=== PATIENT | female | born 1970 | race Caucasian/White ===

== ENCOUNTER 2016-07-11 19:17 | Emergency (ER) | payer OTHER, MEDICARE ==
[~2016-07-11] VITALS: Ht 167.6 cm; Wt 70.0 kg
[~2016-07-11 19:17] MED LIST: CELE40TA PO; CLON0.5T PO; DYAZ37.5 PO; FLUT1SPR5 EACH NARE; SYMB160A INH; TEGR400T PO
[2016-07-11 19:30] VITALS: BP 114/75; PULSE 85; RESP 16; TEMP 98.2; O2SAT 100
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
[2016-07-11] MEDS ORDERED: ORPHENADRINE INJ 60 MG/2 ML AMP IM ONE (19:45)
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
[2016-07-11 21:14] VITALS: BP 141/63
== END 2016-07-11 21:15 | disposition home or self-care (01) ==
LOC: NEPA 19:17
DX: S16.1XXA Strain of muscle, fascia and tendon at neck level, initial encounter (principal); M54.5 Low back pain; G89.29 Other chronic pain; J45.909 Unspecified asthma, uncomplicated; E78.00 Pure hypercholesterolemia, unspecified; J44.9 Chronic obstructive pulmonary disease, unspecified; M79.7 Fibromyalgia; K21.9 Gastro-esophageal reflux disease without esophagitis; F17.210 Nicotine dependence, cigarettes, uncomplicated; V43.52XA Car driver injured in collision with other type car in traffic accident, initial encounter; Y99.8 Other external cause status
CPT/HCPCS: 72125; 96372; 99284; J2360

== ENCOUNTER 2017-04-16 18:24 | Emergency (ER) | payer OTHER, MEDICARE, MEDICAID ==
[~2017-04-16] VITALS: Ht 170.2 cm; Wt 73.0 kg
[2017-04-16 18:45] VITALS: BP 95/59; PULSE 68; RESP 17; TEMP 98.4; O2SAT 98
[2017-04-16] MEDS ORDERED: TEGR200T PO (19:06)
[2017-04-16] MEDS ORDERED: FENT25DI T-DERMAL (19:06)
[2017-04-16] MEDS ORDERED: PERC10TA27 PO (19:06)
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
[2017-04-16 19:21] VITALS: BP 102/68; PULSE 66; RESP 18; O2SAT 98
== END 2017-04-16 20:59 | disposition left against medical advice (07) ==
LOC: PHED 18:24
DX: M54.5 Low back pain (principal); M54.2 Cervicalgia; F41.9 Anxiety disorder, unspecified; F32.9 Major depressive disorder, single episode, unspecified; J44.9 Chronic obstructive pulmonary disease, unspecified; E78.5 Hyperlipidemia, unspecified; M79.7 Fibromyalgia; V49.40XA Driver injured in collision with unspecified motor vehicles in traffic accident, initial encounter; Y92.410 Unspecified street and highway as the place of occurrence of the external cause
CPT/HCPCS: 99281

== ENCOUNTER 2017-05-17 00:13 | Emergency (ER) | payer MEDICARE, MEDICAID ==
[~2017-05-17] VITALS: Ht 167.6 cm; Wt 70.0 kg
[~2017-05-17 00:13] MED LIST changes: +FENT25DI T-DERMAL; -FLUT1SPR5 EACH NARE; +PERC10TA27 PO; -SYMB160A INH; +TEGR200T PO
[2017-05-17 00:22] VITALS: BP 114/66; PULSE 67; RESP 15; TEMP 98.2; O2SAT 99
[2017-05-17 01:34] LABS: BLOOD, URINE NEG (NEG); COMMENT (UR) CULT NOT INDICATED; CULTURE IF INDICATED CULT NOT INDICATED; GLUCOSE,URINE NEG (NEG); KETONE, URINE NEG (NEG); MUCUS URINE FEW /lpf (OCC); NITRITE,URINE NEG (NEG); PH, URINE 6.5 (5.0-8.5); URINE COLOR YELLOW (YELLW/STRAW)
[2017-05-17] MEDS ORDERED: LIDOCAINE 2% JELLY 30 ML TUBE TOPICAL ONE (03:30)
[2017-05-17] MEDS ORDERED: metroNIDAZOLE 500 MG TAB PO ONE (04:00)
[2017-05-17] MEDS ORDERED: METR1TAB76 PO (04:09)
--- NOTE | 2017-05-17 04:18 | PD ---
HPI Chief Complaint: Front Office Representative Problem/Complaint Time Seen by Provider: 00:37 Travel History International Travel<30 days: No Contact w/Intl Traveler<30days: No Traveled to known affect area: No History of Present Illness HPI Patient is a 46-year-old female complaining that she is having severe itching and burning and pain in her vagina as well as bleeding when she wipes with toilet paper. It started in the last 2 days it is not getting any better she was taking Bactrim by her quality control systems manager as well as a topical steroid. It did not improve her symptoms she has seen another quality control systems manager 4 days ago who did a pelvic exam gave her Bactrim and topical steroid she also was given 1 pill of Diflucan without relieving her symptoms. She is in the ER she seems to have some of what of a personality disorder and is very difficult to get a full history out of she keeps saying part of my disabilities I can't go fast and I can't remember and she seems to be quickly agitated. After long discussion of what the emergency is and what we can do for her in the ER she agrees that a pelvic exam with the inspection of her external vagina to look for a source of bleeding would be indicated. Pelvic is done labs are sent wet prep was done and sent cultures are sent [facility] Past Medical History Asthma: Yes Blood Disorders: No Anxiety: Yes Depression: Yes Cancer: Yes Cardiovascular Problems: No High Cholesterol: Yes COPD: Yes Diabetes: No Diminished Hearing: No Endocrine: No Fibromyalgia: Yes Gastrointestinal Disorders: Yes GERD: Yes Glaucoma: No Genitourinary: No Hepatitis: No Hiatal Hernia: No Hypertension: No Immune Disorder: No Medical other: Yes (PANCREATITIS 2006) Musculoskeletal: Yes (CHRONIC BACK PAIN ) Neurologic: Yes Psychiatric: Yes Reproductive: No Respiratory: Yes (COPD) Pancreatitis: Yes (2006) Seizures: Yes Thyroid Disease: No Ulcer: No PNEUMOCCOCAL Vaccine (Year): 2 ?: Not : 0 Para: 0 Miscarriage: 0 : 0 Past Surgical History Abdominal Surgery: Yes (APPENDECTOMY) Appendectomy: Yes (CAN'T REMEMBER) Cardiac Surgery: No Cholecystectomy: Yes Ear Surgery: No Endocrine Surgery: No Eye Surgery: Yes Genitourinary Surgery: No Gynecologic Surgery: Yes (LAPROSCOPY FOR ENDOMETRIOSIS X8 ) Insulin Pump: No Neurologic Surgery: No Oral Surgery: Yes (TONSILLECTOMY) Pacemaker: No Thoracic Surgery: No Tonsillectomy: Yes Tympanostomy Tube: Yes Other Surgery: Yes Social History Alcohol Use: No Tobacco Use: Yes (1/2 PPD) Substance Use: Yes (HX POLYSUBTANCE) Allergies-Medications (Allergen,Severity, Reaction): Coded Allergies: ciprofloxacin (Verified Allergy, Severe, RASH, 05/17/17) naproxen (Verified Allergy, Severe, DIARRHEA, 05/17/17) cephalexin (Verified Adverse Reaction, Intermediate, DIARRHEA, 05/17/17) Reported Meds & Prescriptions Reported Meds & Active Scripts Active Metronidazole 500 Mg Tab 500 Mg PO TID Reported Fentanyl Patch 72 HR (Fentanyl) 25 Mcg/Hr Patch Unknown Dose T-DERMAL Q72H Tegretol (Carbamazepine) 200 Mg Tab 200 Mg PO HS Percocet (Oxycodone-Acetaminophen) 10-325 mg Tab 1 Tab PO Q6H PRN Dyazide (Triamterene-Hydrochlorothiazide) 37.5-25 Mg Cap 1 Cap PO BID Clonazepam 0.5 Mg Tab 0.5 Mg PO BID Celexa (Citalopram Hydrobromide) 40 Mg Tab 40 Mg PO DAILY Tegretol-Xr 12 HR (Carbamazepine) 400 Mg Tab 400 Mg PO DAILY Review of Systems Except as stated in HPI: all other systems reviewed are Neg Genitourinary: Positive: Discharge, Vaginal Bleeding Physical Exam Narrative GENERAL: affect is slight inappropraite and she is irritable when questioned or interrupted SKIN: Warm and dry. HEAD: Atraumatic. Normocephalic. EYES: Pupils equal and round. No scleral icterus. No injection or drainage. ENT: No nasal bleeding or discharge. Mucous membranes pink and moist. NECK: Trachea midline. No JVD. CARDIOVASCULAR: Regular rate and rhythm. pelvic exam external vagina appears normal no source of bleeding internal vagina toro no source of bleeding cervix has a slight discharge possibly physiological no source of bleeding from the cervix cultures are sent and wet prep are sent RESPIRATORY: No accessory muscle use. Clear to auscultation. Breath sounds equal bilaterally. GASTROINTESTINAL: Abdomen soft, non-tender, nondistended. Hepatic and splenic margins not palpable. MUSCULOSKELETAL: Extremities without clubbing, cyanosis, or edema. No obvious deformities. NEUROLOGICAL: Awake and alert. No obvious cranial nerve deficits. Motor grossly within normal limits. Five out of 5 muscle strength in the arms and legs. Normal speech. PSYCHIATRIC: Appropriate mood and affect; insight and judgment normal. Data Data Last Documented VS Vital Signs Date Time Temp Pulse Resp B/P (MAP) Pulse Ox O2 Delivery O2 Flow Rate FiO2 05/17/17 04:24 05/17/17 00:22 98.2 67 15 99 Room Air Orders Orders Urinalysis - C+S If Indicated (05/17/17 01:08) Ed Urine Pregnancytest Poc (05/17/17 01:08) Lidocaine 2% Jelly (Xylocaine 2% Jelly) (05/17/17 03:30) Gc And Chlamydia Pcr (05/17/17 03:20) Wet Prep Profile (05/17/17 03:20) Metronidazole (Flagyl) (05/17/17 04:00) Ed Discharge Order (05/17/17 04:19) Labs Laboratory Tests Test 05/17/17 01:10 05/17/17 02:56 Urine Color YELLOW Urine Turbidity CLEAR Urine pH 6.5 Urine Specific [place] 1.016 Urine Protein NEG mg/dL Urine Glucose (UA) NEG mg/dL Urine Ketones NEG mg/dL Urine Occult Blood NEG Urine Nitrite NEG Urine Bilirubin NEG Urine Urobilinogen LESS THAN 2.0 MG/DL Urine Leukocyte Esterase NEG Urine RBC 7 /hpf Urine WBC LESS THAN 1 /hpf Urine Mucus FEW /lpf Microscopic Urinalysis Comment CULT NOT INDICATED Clue Cells (Wet Prep) PRESENT Vaginal Trichomonas (Wet Prep) NONE SEEN Vaginal Yeast (Wet Prep) NONE SEEN MDM Medical Decision Making Medical Screen Exam Complete: Yes Emergency Medical Condition: Yes Differential Diagnosis Dysuria versus UTI versus hematuria versus vaginal wall bleeding versus cervical vaginal bleeding Narrative Course Pelvic exam is done and there is no bleeding externally internally or from the cervix cultures are sent and wet prep shows rare clue cells I treat her with metronidazole for BV and discharged with a 7 day prescription for 3 times a day metronidazole follow-up with the quality control systems manager Diagnosis Primary Impression: Bacterial vaginosis Patient Instructions: Bacterial Vaginosis (ED), General Instructions Additional Instructions: follow up with you vocational placement specialist in 2 days take all meds as prescribed Scripts Metronidazole (Metronidazole) 500 Mg Tab 500 MG PO TID for Infection, #21 TAB 0 Refills Prov: Zack Carvalho MD 05/17/17 Disposition: 01 DISCHARGE HOME Condition: Good Zack Carvalho MD May 17, 2017 04:18
[2017-05-17 06:16] LABS: CHLAMYDIA PCR NOT DETECTED (NOT DETECT); NEISSERIA PCR NOT DETECTED (NOT DETECT)
== END 2017-05-17 04:30 | disposition home or self-care (01) ==
LOC: NEPC 00:13
DX: N76.0 Acute vaginitis (principal); B96.89 Other specified bacterial agents as the cause of diseases classified elsewhere; F17.200 Nicotine dependence, unspecified, uncomplicated
CPT/HCPCS: 81001; 84703; 87210; 87491; 87591; 99284

== ENCOUNTER 2017-06-08 13:03 | Emergency (ER) | payer MEDICARE, OTHER ==
[~2017-06-08] VITALS: Ht 167.6 cm; Wt 65.0 kg
[~2017-06-08 13:03] MED LIST changes: +METR1TAB76 PO
[2017-06-08 13:05] VITALS: BP 122/69; PULSE 65; RESP 14; TEMP 97.8; O2SAT 97
[2017-06-08] MEDS ORDERED: DIFL150T PO (14:11)
[2017-06-08] MEDS ORDERED: AUGM875T3 PO (14:11)
--- NOTE | 2017-06-08 14:12 | PD ---
HPI Chief Complaint: ENT Complaint Time Seen by Provider: 13:56 Travel History International Travel<30 days: No Contact w/Intl Traveler<30days: No Traveled to known affect area: No History of Present Illness HPI Patient is a 46-year-old female presents to emergency room with multiple complaints. 1) Patient reports that for the past few days, she has been having tooth pain. Patient reports that she has been unable to go to her dentist, request pain medications for dental pain. 2) patient reports that for the past 2 days, she has had a sore throat, reports that she has laryngitis, reports concerns for strep pharyngitis. Patient with no fever or chills, no cough or congestion. 3) patient also reports that she had sex with her ex- a few days ago, reports that the condom broke, patient reports that she is concern for possible STD as she has noticed thick vaginal discharge. Patient reports that she called her postpartum rn but was not able to be seen. Patient with no abdominal pain at this time. Denies n/v/d. Request STD check. PFSH Past Medical History Asthma: Yes Blood Disorders: No Anxiety: Yes Depression: Yes Cancer: Yes Cardiovascular Problems: No High Cholesterol: Yes COPD: Yes Diabetes: No Diminished Hearing: No Endocrine: No Fibromyalgia: Yes Gastrointestinal Disorders: Yes GERD: Yes Glaucoma: No Genitourinary: No Hepatitis: No Hiatal Hernia: No Hypertension: No Immune Disorder: No Musculoskeletal: Yes (CHRONIC BACK PAIN ) Neurologic: Yes Psychiatric: Yes Reproductive: No Respiratory: Yes (COPD) Pancreatitis: Yes (2006) Seizures: Yes Thyroid Disease: No Ulcer: No PNEUMOCCOCAL Vaccine (Year): 2 ?: Not : 0 Para: 0 Miscarriage: 0 : 0 Past Surgical History Abdominal Surgery: Yes (APPENDECTOMY) Appendectomy: Yes (CAN'T REMEMBER) Cardiac Surgery: No Cholecystectomy: Yes Ear Surgery: No Endocrine Surgery: No Eye Surgery: Yes Genitourinary Surgery: No Gynecologic Surgery: Yes (LAPROSCOPY FOR ENDOMETRIOSIS X8 ) Insulin Pump: No Neurologic Surgery: No Oral Surgery: Yes (TONSILLECTOMY) Pacemaker: No Thoracic Surgery: No Tonsillectomy: Yes Tympanostomy Tube: Yes Other Surgery: Yes Social History Alcohol Use: No Tobacco Use: Yes (1/2 PPD) Substance Use: Yes (HX POLYSUBTANCE) Allergies-Medications (Allergen,Severity, Reaction): Coded Allergies: ciprofloxacin (Verified Allergy, Severe, RASH, 05/17/17) naproxen (Verified Allergy, Severe, DIARRHEA, 05/17/17) cephalexin (Verified Adverse Reaction, Intermediate, DIARRHEA, 05/17/17) Reported Meds & Prescriptions Reported Meds & Active Scripts Active Diflucan (Fluconazole) 150 Mg Tab 150 Mg PO ONCE Augmentin (Amoxicillin-Clavulanate) 875-125 Mg Tab 1 Tab PO BID 10 Days Metronidazole 500 Mg Tab 500 Mg PO TID Reported Fentanyl Patch 72 HR (Fentanyl) 25 Mcg/Hr Patch Unknown Dose T-DERMAL Q72H Tegretol (Carbamazepine) 200 Mg Tab 200 Mg PO HS Percocet (Oxycodone-Acetaminophen) 10-325 mg Tab 1 Tab PO Q6H PRN Dyazide (Triamterene-Hydrochlorothiazide) 37.5-25 Mg Cap 1 Cap PO BID Clonazepam 0.5 Mg Tab 0.5 Mg PO BID Celexa (Citalopram Hydrobromide) 40 Mg Tab 40 Mg PO DAILY Tegretol-Xr 12 HR (Carbamazepine) 400 Mg Tab 400 Mg PO DAILY Review of Systems General / Constitutional: No: Fever Eyes: No: Visual changes HENT: Positive: Sore Throat, Dental Difficulties, No: Headaches, Neck Pain Cardiovascular: No: Chest Pain or Discomfort Respiratory: No: Cough, Shortness of Breath Gastrointestinal: No: Abdominal Pain Genitourinary: Positive: Discharge, No: Dysuria, Vaginal Bleeding Musculoskeletal: No: Pain Skin: No Rash Neurologic: No: Weakness Psychiatric: No: Depression Endocrine: No: Polydipsia Hematologic/Lymphatic: No: Easy Bruising Physical Exam Narrative GENERAL: mild distress SKIN: Focused skin assessment warm/dry. HEAD: Atraumatic. Normocephalic. EYES: Pupils equal and round. No scleral icterus. No injection or drainage. ENT: No nasal bleeding or discharge. Mucous membranes pink and moist. Patient with pain to right upper molar, patient with increased redness and erythema to posterior pharynx, there is no swelling to posterior pharynx. Uvula is midline with no swelling. NECK: Trachea midline. No JVD. CARDIOVASCULAR: Regular rate and rhythm. No murmur appreciated. RESPIRATORY: No accessory muscle use. Clear to auscultation. Breath sounds equal bilaterally. GASTROINTESTINAL: Abdomen soft, non-tender, nondistended. Hepatic and splenic margins not palpable. : pelvic exam performed with RN at bedside, no cmt or adnexal tenderness, patient with thick white discharge from vagina MUSCULOSKELETAL: No obvious deformities. No clubbing. No cyanosis. No edema. NEUROLOGICAL: Awake and alert. No obvious cranial nerve deficits. Motor grossly within normal limits. Normal speech. PSYCHIATRIC: Appropriate mood and affect; insight and judgment normal. Data Data Last Documented VS Vital Signs Date Time Temp Pulse Resp B/P (MAP) Pulse Ox O2 Delivery O2 Flow Rate FiO2 06/08/17 13:05 97.8 65 14 122/69 (86) 97 Orders Orders Gc And Chlamydia Pcr (06/08/17 14:00) Wet Prep Profile (06/08/17 14:00) Urinalysis - C+S If Indicated (06/08/17 14:00) Ed Urine Pregnancytest Poc (06/08/17 14:00) Dexamethasone Inj (Decadron Inj) (06/08/17 14:15) Amoxicil-Clavulanate (Augmentin) (06/08/17 14:15) Labs Laboratory Tests Test 06/08/17 15:15 06/08/17 15:18 Urine Color YELLOW Urine Turbidity CLEAR Urine pH 6.5 Urine Specific [place] 1.014 Urine Protein NEG mg/dL Urine Glucose (UA) NEG mg/dL Urine Ketones NEG mg/dL Urine Occult Blood NEG Urine Nitrite NEG Urine Bilirubin NEG Urine Urobilinogen LESS THAN 2.0 MG/DL Urine Leukocyte Esterase LARGE Urine WBC LESS THAN 1 /hpf Urine Squamous Epithelial Cells 1 /hpf Urine Mucus FEW /lpf Microscopic Urinalysis Comment CULT NOT INDICATED Clue Cells (Wet Prep) NONE SEEN Vaginal Trichomonas (Wet Prep) NONE SEEN Vaginal Yeast (Wet Prep) NONE SEEN MDM Medical Decision Making Medical Screen Exam Complete: Yes Emergency Medical Condition: Yes Medical Record Reviewed: Yes Interpretation(s) Vital Signs Date Time Temp Pulse Resp B/P (MAP) Pulse Ox O2 Delivery O2 Flow Rate FiO2 06/08/17 13:05 97.8 65 14 122/69 (86) 97 Differential Diagnosis Dental caries, pharyngitis, viral syndrome, cervicitis, UTI Narrative Course 46-year-old female who presents to emergency room with multiple complaints. Patient understands that she must follow-up with her primary care doctor, her dentist as well as her postpartum rn for all her nonemergent complaints. Plan to treat for possible strep pharyngitis with Augmentin as this will cover possible dental infection. Patient understands that she must follow-up with a dentist for dental pain as there are no dental services that I can offer her in the ER. Was called back into room as patient reports pain with swallowing - airway is open and patent, patient with no signs of airway compromise or edema. Discussed with patient that she most likely has strep pharyngitis, she'll be treated for pharyngitis. As per her vaginal discharge, patient denies any pelvic pain. Discussed with her that I will perform a pelvic exam, I will test for gonorrhea/chlamydia, she will need to follow-up with her postpartum rn for further STD testing. She will also need to follow up with all cultures from today. A pelvic exam was performed, she with thick white discharge, most likely Isabel in nature. Plan to start patient on Diflucan. Patient will follow-up with her GC results, she does not want to be treated at this time. She understands that if cultures are positive, all sexual partners will need to be treated. Patient will follow up with her primary care doctor and will return to emergency room as needed. She also understands need to follow-up with her postpartum rn for full STD panel I was called back into the room multiple times as patient is concerned about treatment for yeast infection. Discussed with patient that she will be discharged with Diflucan prescription at discharge I reviewed all studies with patient in detail, greater than 20 minutes was used to review all discharge instructions and need to follow-up with her primary care doctor, her dentist as well as her postpartum rn. Patient was anxious on discharge, requesting to speak to me again. I reviewed all studies from today as well as plan of care. Understands need for follow up. Signs and symptoms of when to return to the ER was reviewed with patient in detail. Critical Care Narrative Aggregate critical care time was 30 minutes. Time to perform other separately billable procedures was not included in the critical care time. My time did not include minutes spent treating any other patients simultaneously or on activities that did not directly contribute to the patient's treatment. I was called into patient's room multiple times to answer questions and address all her concerns The services I provided to this patient were to treat and/or prevent clinically significant deterioration that could result in decompensation, deterioration. I provided critical care services requiring my management, as noted below: Chart data review, documentation time, medication orders and management, vital sign assessments/reviewing monitor data, ordering and reviewing lab tests, ordering and interpreting/reviewing x-rays and diagnostic studies, care of the patient and discussion of the patient with the admitting physicians. Diagnosis Primary Impression: Strep pharyngitis Additional Impressions: Pain, dental Vaginitis Patient Instructions: General Instructions Additional Instructions: Please take all medications as prescribed Please follow-up with all cultures from today Please follow-up with your dentist Please follow-up with postpartum rn for further STD testing, only gonorrhea and chlamydia tests today, if cultures are positive, all sexual partners will need to be treated Please follow up with your primary care doctor in 2-3 days Return to the ER if symptoms worsen or progress Return to the ER as needed Med/Other Pt SpecificInfo: Prescription(s) given Scripts Fluconazole (Diflucan) 150 Mg Tab 150 MG PO ONCE for Infection, #2 TAB 0 Refills Prov: Lucille Gerard DO 06/08/17 Amoxicillin-Clavulanate (Augmentin) 875-125 Mg Tab 1 TAB PO BID for Infection for 10 Days, #20 TAB 0 Refills Prov: Lucille Gerard DO 06/08/17 Disposition: 01 DISCHARGE HOME Condition: Stable Lucille Gerard DO Jun 08, 2017 14:12
[2017-06-08] MEDS ORDERED: AMOXICILLIN/CLAVULANATE K 875 MG TAB PO ONE (14:15)
[2017-06-08] MEDS ORDERED: DEXAMETHASONE SOD PHOS 20 MG/5 ML VIAL IM ONE (14:15)
[2017-06-08 15:35] LABS: BLOOD, URINE NEG (NEG); COMMENT (UR) CULT NOT INDICATED; CULTURE IF INDICATED CULT NOT INDICATED; GLUCOSE,URINE NEG (NEG); KETONE, URINE NEG (NEG); MUCUS URINE FEW /lpf (OCC); NITRITE,URINE NEG (NEG); PH, URINE 6.5 (5.0-8.5); SQUAMOUS EPITHELIAL CELL URINE 1 /hpf (0-5); URINE COLOR YELLOW (YELLW/STRAW)
[2017-06-08 18:19] LABS: CHLAMYDIA PCR NOT DETECTED (NOT DETECT); NEISSERIA PCR NOT DETECTED (NOT DETECT)
== END 2017-06-08 17:03 | disposition home or self-care (01) ==
LOC: NEPD 13:03
DX: J02.0 Streptococcal pharyngitis (principal); K08.89 Other specified disorders of teeth and supporting structures; N76.0 Acute vaginitis; F17.200 Nicotine dependence, unspecified, uncomplicated
CPT/HCPCS: 81001; 84703; 87210; 87491; 87591; 96372; 99285; J1100

== ENCOUNTER 2017-10-19 14:33 | Emergency (ER) | payer MEDICARE, OTHER ==
[~2017-10-19] VITALS: Ht 167.6 cm; Wt 73.0 kg
[~2017-10-19 14:33] MED LIST changes: +AUGM875T3 PO; +DIFL150T PO
[2017-10-19 14:38] VITALS: PULSE 68; RESP 16; TEMP 98; O2SAT 99
[2017-10-19] MEDS ORDERED: HYDR-3583 PO (14:51)
[2017-10-19] MEDS ORDERED: PENI500T PO (14:56)
[2017-10-19] MEDS ORDERED: DIFL150T PO (14:56)
--- NOTE | 2017-10-19 14:56 | PD ---
HPI Chief Complaint: Oral / Dental Pain or Problem Time Seen by Provider: 14:48 Travel History International Travel<30 days: No Contact w/Intl Traveler<30days: No Traveled to known affect area: No History of Present Illness HPI 47-year-old female with left upper dental pain 1 day. Denies fever chills. No difficulty swallowing. Has not attempted any [id number] medications for symptom relief. Pain is constant, throbbing, nonradiating localized to the left upper mouth. Symptom severity is mild to moderate. PFSH Past Medical History Arthritis: Yes Asthma: Yes Blood Disorders: No Anxiety: Yes Depression: Yes Cancer: Yes Cardiovascular Problems: No High Cholesterol: Yes COPD: Yes Diabetes: No Diminished Hearing: No Endocrine: No Fibromyalgia: Yes Gastrointestinal Disorders: Yes GERD: Yes Glaucoma: No Genitourinary: No Hepatitis: No Hiatal Hernia: No Hypertension: No Immune Disorder: No Implanted Vascular Access Dvce: No Musculoskeletal: Yes (CHRONIC BACK PAIN ,BURSITIS BOTH HIPS) Neurologic: Yes Psychiatric: Yes Reproductive: No Respiratory: Yes Immunizations Current: Yes Pancreatitis: Yes (2006) Seizures: Yes Thyroid Disease: No Ulcer: No PNEUMOCCOCAL Vaccine (Year): 2 : 0 Para: 0 Miscarriage: 0 : 0 Past Surgical History Abdominal Surgery: Yes (APPENDECTOMY) Appendectomy: Yes (CAN'T REMEMBER) Cardiac Surgery: No Cholecystectomy: Yes Ear Surgery: No Endocrine Surgery: No Eye Surgery: Yes Genitourinary Surgery: No Gynecologic Surgery: Yes (LAPROSCOPY FOR ENDOMETRIOSIS X8 ) Insulin Pump: No Neurologic Surgery: No Oral Surgery: Yes Pacemaker: No Thoracic Surgery: No Tonsillectomy: Yes Tympanostomy Tube: Yes Other Surgery: Yes Social History Alcohol Use: No Tobacco Use: Yes (1/2 PPD) Substance Use: Yes (HX POLYSUBTANCE) Allergies-Medications (Allergen,Severity, Reaction): Coded Allergies: ciprofloxacin (Verified Allergy, Severe, RASH, 10/19/17) naproxen (Verified Allergy, Severe, DIARRHEA, 10/19/17) cephalexin (Verified Adverse Reaction, Intermediate, DIARRHEA, 10/19/17) Reported Meds & Prescriptions Reported Meds & Active Scripts Active Diflucan (Fluconazole) 150 Mg Tab 150 Mg PO ONCE Penicillin V Potassium 500 Mg Tab 500 Mg PO Q8H 7 Days Reported Hydrocodone-Acetaminophen 10-325 mg Tab 1 Tab PO Q6H PRN Tegretol (Carbamazepine) 200 Mg Tab 200 Mg PO HS Clonazepam 0.5 Mg Tab 0.5 Mg PO BID Celexa (Citalopram Hydrobromide) 40 Mg Tab 40 Mg PO DAILY Tegretol-Xr 12 HR (Carbamazepine) 400 Mg Tab 400 Mg PO DAILY Review of Systems Except as stated in HPI: all other systems reviewed are Neg General / Constitutional: No: Fever Eyes: No: Visual changes HENT: No: Headaches Cardiovascular: No: Chest Pain or Discomfort Respiratory: No: Shortness of Breath Gastrointestinal: No: Abdominal Pain Genitourinary: No: Dysuria Physical Exam Narrative GENERAL: Alert and well-appearing 47-year-old female SKIN: Warm and dry. HEAD: Normocephalic. EYES: No scleral icterus. No injection or drainage. MOUTH: Widespread dental decay. Mild gum erythema around the left upper first bicuspid. No swelling to the floor the mouth. Uvula is midline. Airways patent. NECK: Supple, trachea midline. No lymphadenopathy. CARDIOVASCULAR: Regular rate and rhythm RESPIRATORY: Breath sounds equal bilaterally. No accessory muscle use. GASTROINTESTINAL: Abdomen soft, non-tender, nondistended. MUSCULOSKELETAL: No cyanosis, or edema. Data Data Last Documented VS Vital Signs Date Time Temp Pulse Resp B/P (MAP) Pulse Ox O2 Delivery O2 Flow Rate FiO2 10/19/17 15:41 10/19/17 14:38 98.0 68 16 99 MDM Medical Decision Making Medical Screen Exam Complete: Yes Emergency Medical Condition: Yes Differential Diagnosis Dental infection, periodontal disease, dental abscess Narrative Course 47-year-old female here with mild dental infection. She reports allergies cephalexin but is able to take penicillin. Diagnosis Primary Impression: Dental infection Referrals: Dentist Scripts Fluconazole (Diflucan) 150 Mg Tab 150 MG PO ONCE for Infection, #1 TAB 0 Refills Prov: Laisha Haley 10/19/17 Penicillin V Potassium (Penicillin V Potassium) 500 Mg Tab 500 MG PO Q8H for Infection for 7 Days, #21 TAB 0 Refills Prov: Laisha Haley 10/19/17 Disposition: 01 DISCHARGE HOME Condition: Stable Laisha Haley Oct 19, 2017 14:56
[2017-10-19 14:57] VITALS: BP 131/70
== END 2017-10-19 15:41 | disposition home or self-care (01) ==
LOC: PHEFT 14:33
DX: K04.7 Periapical abscess without sinus (principal); E78.00 Pure hypercholesterolemia, unspecified; F32.9 Major depressive disorder, single episode, unspecified; F41.9 Anxiety disorder, unspecified; J44.9 Chronic obstructive pulmonary disease, unspecified; K21.9 Gastro-esophageal reflux disease without esophagitis; G89.29 Other chronic pain; M54.9 Dorsalgia, unspecified; F17.200 Nicotine dependence, unspecified, uncomplicated
CPT/HCPCS: 99283

== ENCOUNTER 2017-11-15 12:05 | Emergency (ER) | END 2017-11-15 15:43 | disposition home or self-care (01) | DX: K04.7 Periapical abscess without sinus (principal); E78.00 Pure hypercholesterolemia, unspecified; K21.9 Gastro-esophageal reflux disease without esophagitis; G40.909 Epilepsy, unspecified, not intractable, without status epilepticus; F41.8 Other specified anxiety disorders; F17.200 Nicotine dependence, unspecified, uncomplicated; Z87.39 Personal history of other diseases of the musculoskeletal system and connective tissue; Z87.09 Personal history of other diseases of the respiratory system; Z87.19 Personal history of other diseases of the digestive system | CPT/HCPCS: 70491; 80053; 85025; 96361; 96374; 96375; 99284; J1100; J1885; J7030; Q9967 ==

== ENCOUNTER 2017-11-16 12:52 | Emergency (ER) | payer MEDICARE, OTHER ==
[~2017-11-16] VITALS: Ht 167.6 cm; Wt 74.0 kg
[~2017-11-16 12:52] MED LIST changes: +AMOX500C PO; -DYAZ37.5 PO; -FENT25DI T-DERMAL; +HYDR-3583 PO; +MEDR4PAK PO; -METR1TAB76 PO; -PERC10TA27 PO
[2017-11-16 12:56] VITALS: BP 115/59; PULSE 64; RESP 16; TEMP 98.6; O2SAT 99
[2017-11-16] MEDS ORDERED: CLINDAMYCIN PHOS 600 MG/4 ML VIAL IM ONE (13:30)
[2017-11-16] MEDS ORDERED: DIFL150T PO (13:35)
[2017-11-16] MEDS ORDERED: CLIN300C5 PO (13:35)
--- NOTE | 2017-11-16 13:35 | PD ---
HPI Chief Complaint: Oral / Dental Pain or Problem Time Seen by Provider: 13:16 Travel History International Travel<30 days: No Contact w/Intl Traveler<30days: No Traveled to known affect area: No History of Present Illness HPI 47-year-old female here with left lower dental abscess reporting nausea after taking Augmentin. She is requesting antibiotic change. No difficulty swallowing. No vomiting or abdominal pain. No fever chills. She had an extensive workup yesterday. She reports the nausea started after each dose of Augmentin last night and this morning. Symptom severity is mild to moderate. PFSH Past Medical History Arthritis: Yes Asthma: Yes Blood Disorders: No Anxiety: Yes Depression: Yes Cancer: Yes Cardiovascular Problems: No High Cholesterol: Yes COPD: Yes Diabetes: No Diminished Hearing: No Endocrine: No Fibromyalgia: Yes Gastrointestinal Disorders: Yes GERD: Yes Glaucoma: No Genitourinary: No Hepatitis: No Hiatal Hernia: No Hypertension: No Immune Disorder: No Implanted Vascular Access Dvce: No Musculoskeletal: Yes (CHRONIC BACK PAIN ,BURSITIS BOTH HIPS) Neurologic: Yes Psychiatric: Yes Reproductive: No Respiratory: Yes (asthma, COPD) Immunizations Current: Yes Pancreatitis: Yes (2006) Seizures: Yes Thyroid Disease: No Ulcer: No Influenza Vaccination: No PNEUMOCCOCAL Vaccine (Year): 2 ?: Not : 0 Para: 0 Miscarriage: 0 : 0 Past Surgical History Abdominal Surgery: Yes Appendectomy: Yes Cardiac Surgery: No Cholecystectomy: Yes Ear Surgery: No Endocrine Surgery: No Eye Surgery: Yes Genitourinary Surgery: No Gynecologic Surgery: Yes (LAPROSCOPY FOR ENDOMETRIOSIS X8 ) Insulin Pump: No Neurologic Surgery: No Oral Surgery: Yes Pacemaker: No Thoracic Surgery: No Tonsillectomy: Yes Tympanostomy Tube: Yes Other Surgery: Yes Social History Alcohol Use: No Tobacco Use: Yes (1/2 PPD) Substance Use: Yes (HX POLYSUBTANCE ) Allergies-Medications (Allergen,Severity, Reaction): Coded Allergies: ciprofloxacin (Verified Allergy, Severe, RASH, 11/16/17) naproxen (Verified Allergy, Severe, DIARRHEA, 11/16/17) cephalexin (Verified Adverse Reaction, Intermediate, DIARRHEA, 11/16/17) Reported Meds & Prescriptions Reported Meds & Active Scripts Active Zofran (Ondansetron HCl) 4 Mg Tab 4 Mg PO Q8HR PRN Diflucan (Fluconazole) 150 Mg Tab 150 Mg PO ONCE Clindamycin (Clindamycin HCl) 300 Mg Cap 300 Mg PO Q6H 10 Days Medrol Dosepak (Methylprednisolone) 4 Mg Dspk 4 Mg PO DIRECTED Per Pharmacist direction Augmentin (Amoxicillin-Clavulanate) 875-125 Mg Tab 1 Tab PO BID 7 Days Reported Hydrocodone-Acetaminophen 10-325 mg Tab 1 Tab PO Q6H PRN Tegretol (Carbamazepine) 200 Mg Tab 800 Mg PO HS Clonazepam 0.5 Mg Tab 0.5 Mg PO BID Celexa (Citalopram Hydrobromide) 40 Mg Tab 40 Mg PO DAILY Tegretol-Xr 12 HR (Carbamazepine) 400 Mg Tab 400 Mg PO DAILY Review of Systems Except as stated in HPI: all other systems reviewed are Neg General / Constitutional: No: Fever Eyes: No: Visual changes HENT: No: Headaches Cardiovascular: No: Chest Pain or Discomfort Respiratory: No: Shortness of Breath Gastrointestinal: Positive: Nausea Genitourinary: No: Dysuria Physical Exam Narrative GENERAL: Alert and well-appearing 47-year-old female SKIN: Warm and dry. HEAD: Normocephalic. EYES: No injection or drainage. ENT: Widespread dental decay. There is gum swelling in the location to 20 through 18. No swelling to the floor the mouth. No oropharyngeal swelling. Uvula is midline. Airways patent. Normal phonation. NECK: Supple, trachea midline. Mild tenderness and swelling to the submandibular region she reports this area is actually decreased since yesterday 's visit. CARDIOVASCULAR: Regular rate and rhythm without murmurs, gallops, or rubs. RESPIRATORY: Breath sounds equal bilaterally. No accessory muscle use. GASTROINTESTINAL: Abdomen soft, non-tender, nondistended. MUSCULOSKELETAL: No cyanosis, or edema. Data Data Last Documented VS Vital Signs Date Time Temp Pulse Resp B/P (MAP) Pulse Ox O2 Delivery O2 Flow Rate FiO2 11/16/17 12:56 98.6 64 16 115/59 (77) 99 Orders Orders Clindamycin Inj (Cleocin Inj) (11/16/17 13:30) MDM Medical Decision Making Medical Screen Exam Complete: Yes Emergency Medical Condition: Yes Differential Diagnosis Dental abscess, Khurram's angina, adverse effect of medication causing nausea Narrative Course 47-year-old female here with left lower dental abscess reporting nausea after taking Augmentin. She is requesting antibiotic change. She is nontoxic appearing. No difficulty swallowing. She had an extensive workup yesterday. She has follow-up with her dentist. Her antibiotic was changed to clindamycin. She is requesting Diflucan prescription for possible yeast infection after antibiotics. Diagnosis Primary Impression: Dental abscess Additional Impression: Nausea Referrals: Dentist Additional Instructions: Antibiotics as directed. Stay well hydrated. Follow-up with her dentist. Scripts Ondansetron (Zofran) 4 Mg Tab 4 MG PO Q8HR Y for NAUSEA OR VOMITING, #6 TAB 0 Refills Prov: Laisha Haley 11/16/17 Fluconazole (Diflucan) 150 Mg Tab 150 MG PO ONCE for Infection, #1 TAB 0 Refills Prov: Laisha Haley 11/16/17 Clindamycin (Clindamycin) 300 Mg Cap 300 MG PO Q6H for Infection for 10 Days, #40 CAP 0 Refills Prov: Laisha Haley 11/16/17 Laisha Haley November 16, 2017 13:35
[2017-11-16] MEDS ORDERED: ZOFR4TAB PO (13:44)
== END 2017-11-16 14:09 | disposition home or self-care (01) ==
LOC: PHEFT 12:52
DX: K04.7 Periapical abscess without sinus (principal); K85.90 Acute pancreatitis without necrosis or infection, unspecified; J44.9 Chronic obstructive pulmonary disease, unspecified; E78.00 Pure hypercholesterolemia, unspecified; M79.7 Fibromyalgia; K21.9 Gastro-esophageal reflux disease without esophagitis; F17.200 Nicotine dependence, unspecified, uncomplicated
CPT/HCPCS: 96372

== ENCOUNTER 2017-12-19 15:29 | Emergency (ER) | payer MEDICARE, OTHER ==
[~2017-12-19 15:29] MED LIST changes: -AMOX500C PO; +CLIN300C5 PO; +ZOFR4TAB PO
[2017-12-19 15:45] VITALS: BP 111/67; PULSE 63; RESP 18; TEMP 98.5; O2SAT 95
--- NOTE | 2017-12-19 18:34 | PD ---
HPI Chief Complaint: Data Architect Manager Problem/Complaint Time Seen by Provider: 17:33 Travel History International Travel<30 days: No Contact w/Intl Traveler<30days: No Traveled to known affect area: No History of Present Illness HPI 47-year-old female which is the ED for evaluation of approximate 36 hour history of vaginal irritation. Onset after unprotected sex with a single male partner. Patient endorses light colored vaginal discharge. She denies foul odor, abdominal pain, nausea, vomiting, dysuria, vaginal bleeding. She states that as she is sitting here she feels as if she is getting more irritated in the pelvic region. She denies risk of , states this is her first sexual encounter in many years. She is unsure if her partner is experiencing more symptoms. PFSH Past Medical History Arthritis: Yes Asthma: Yes Blood Disorders: No Anxiety: Yes Depression: Yes Cancer: Yes Cardiovascular Problems: No High Cholesterol: Yes COPD: Yes Diabetes: No Diminished Hearing: No Endocrine: No Fibromyalgia: Yes Gastrointestinal Disorders: Yes GERD: Yes Glaucoma: No Genitourinary: No Hepatitis: No Hiatal Hernia: No Hypertension: No Immune Disorder: No Implanted Vascular Access Dvce: No Medical other: Yes (PANCREATITIS 2006) Musculoskeletal: Yes (CHRONIC BACK PAIN ,BURSITIS BOTH HIPS) Neurologic: Yes Psychiatric: Yes Reproductive: No Respiratory: Yes (asthma, COPD) Immunizations Current: Yes Pancreatitis: Yes (2006) Seizures: Yes Thyroid Disease: No Ulcer: No PNEUMOCCOCAL Vaccine (Year): 2 ?: Not LMP: 2013 Menopausal: Yes : 0 Para: 0 Miscarriage: 0 : 0 Past Surgical History Abdominal Surgery: Yes Appendectomy: Yes Cardiac Surgery: No Cholecystectomy: Yes Ear Surgery: No Endocrine Surgery: No Eye Surgery: Yes Genitourinary Surgery: No Gynecologic Surgery: Yes (LAPROSCOPY FOR ENDOMETRIOSIS X8 ) Insulin Pump: No Neurologic Surgery: No Oral Surgery: Yes Pacemaker: No Thoracic Surgery: No Tonsillectomy: Yes Tympanostomy Tube: Yes Other Surgery: Yes Social History Alcohol Use: No Tobacco Use: Yes (1/2 PPD) Substance Use: Yes (HX POLYSUBTANCE ) Allergies-Medications (Allergen,Severity, Reaction): Coded Allergies: ciprofloxacin (Verified Allergy, Severe, RASH, 11/16/17) naproxen (Verified Allergy, Severe, DIARRHEA, 11/16/17) cephalexin (Verified Adverse Reaction, Intermediate, DIARRHEA, 11/16/17) Reported Meds & Prescriptions Reported Meds & Active Scripts Active Bactrim DS (Sulfamethoxazole-Trimethoprim) 800-160 Mg Tab 1 Tab PO BID Metrogel Vaginal Gel (Metronidazole Vaginal Gel) 0.75 % Gel 1 Appl VAGINAL HS 5 Days Diflucan (Fluconazole) 150 Mg Tab 150 Mg PO ONCE Reported Hydrocodone-Acetaminophen 10-325 mg Tab 1 Tab PO Q6H PRN Tegretol (Carbamazepine) 200 Mg Tab 800 Mg PO HS Clonazepam 0.5 Mg Tab 0.5 Mg PO BID Celexa (Citalopram Hydrobromide) 40 Mg Tab 40 Mg PO DAILY Tegretol-Xr 12 HR (Carbamazepine) 400 Mg Tab 400 Mg PO DAILY Review of Systems Except as stated in HPI: all other systems reviewed are Neg Physical Exam Narrative GENERAL: Well-nourished, well-developed white female no acute distress. SKIN: Focused skin assessment warm/dry. HEAD: Normocephalic. EYES: No scleral icterus. No injection or drainage. NECK: Supple, trachea midline. No JVD or lymphadenopathy. CARDIOVASCULAR: Regular rate and rhythm without murmurs, gallops, or rubs. RESPIRATORY: Breath sounds equal bilaterally. No accessory muscle use. GASTROINTESTINAL: Abdomen soft, non-tender, nondistended. Active bowel sounds. GENITOURINARY: Normal external genitalia without lesions or erythema. Vaginal vault without blood. Small amount of pale yellow drainage in the vaginal vault. Cervical os was closed without drainage. No cervical motion tenderness. Uterus nontender and nonenlarged. Bilateral adnexa nontender without masses. MUSCULOSKELETAL: No cyanosis, or edema. BACK: Nontender without obvious deformity. No CVA tenderness. Data Data Last Documented VS Vital Signs Date Time Temp Pulse Resp B/P (MAP) Pulse Ox O2 Delivery O2 Flow Rate FiO2 12/19/17 15:45 98.5 63 18 111/67 (82) 95 Orders Orders Gc And Chlamydia Pcr (12/19/17 17:51) Wet Prep Profile (12/19/17 17:51) Urinalysis - C+S If Indicated (12/19/17 17:51) Azithromycin Powd Pack (Zithromax Powd P (12/19/17 18:45) Ceftriaxone Inj (Rocephin Inj) (12/19/17 18:45) Lidocaine 1% Inj (50 Ml) (Xylocaine 1% I (12/19/17 18:45) Urine Culture (12/19/17 18:30) Lidocaine Pf 1% Inj (Xylocaine-Mpf 1% In (12/19/17 19:02) Ed Discharge Order (12/19/17 19:15) Labs Laboratory Tests Test 12/19/17 18:30 Urine Color Becky Urine Turbidity CLOUDY Urine pH 6.0 Urine Specific [place] 1.015 Urine Protein NEG mg/dL Urine Glucose (UA) NEG mg/dL Urine Ketones NEG mg/dL Urine Occult Blood NEG Urine Nitrite NEG Urine Bilirubin NEG Urine Urobilinogen LESS THAN 2 mg/dL Urine Leukocyte Esterase LARGE Urine RBC 1 /hpf Urine WBC 21 /hpf Urine Squamous Epithelial Cells 7 /hpf Urine Bacteria OCC /hpf Urine Mucus FEW /lpf Microscopic Urinalysis Comment CULTURE INDICATED Clue Cells (Wet Prep) PRESENT Vaginal Trichomonas (Wet Prep) NONE SEEN Vaginal Yeast (Wet Prep) NONE SEEN MDM Medical Decision Making Medical Screen Exam Complete: Yes Emergency Medical Condition: Yes Differential Diagnosis UTI versus candidiasis versus latex reaction versus vaginal dryness/chafing versus STD versus other Narrative Course 47-year-old female which is the ED for evaluation of approximate 36 hour history of vaginal irritation. Onset after unprotected sex with a single male partner. Patient endorses light colored vaginal discharge. Vitals reviewed. Abdominal exam unremarkable. Pale fluid in the vaginal vault. Patient requested and was administered GC and chlamydia treatment. Wet prep positive for clue cells. UA with evidence of UTI. Patient is prescribed Metrogel and Bactrim. She is stable and discharged home. Diagnosis Primary Impression: Bacterial vaginosis Additional Impression: Urinary tract infection Qualified Codes: N39.0 - Urinary tract infection, site not specified Referrals: Primary Care Physician Additional Instructions: Take antibiotics as prescribed Avoid sexual activity until symptoms resolve Follow up with the primary care Return to the ed for any urgent or emergent medical condition. Med/Other Pt SpecificInfo: Prescription(s) given Scripts Sulfamethoxazole-Trimethoprim (Bactrim DS) 800-160 Mg Tab 1 TAB PO BID for Infection, #6 TAB 0 Refills Prov: Latonya Rivera MD 12/19/17 Metronidazole Vaginal Gel (Metrogel Vaginal Gel) 0.75 % Gel 1 APPL VAGINAL HS for Infection for 5 Days, #1 TUBE 0 Refills Prov: Latonya Rivera MD 12/19/17 Disposition: 01 DISCHARGE HOME Condition: Stable Moriah Guardado Dec 19, 2017 18:34
[2017-12-19] MEDS ORDERED: cefTRIAXone 250 MG VIAL IM ONE (18:45)
[2017-12-19] MEDS ORDERED: LIDOCAINE HCL 1% 50 ML VIAL IM ONE (18:45)
[2017-12-19] MEDS ORDERED: AZITHROMYCIN PWD FOR SUSP 1 GM PACKET PO ONE (18:45)
[2017-12-19 18:56] LABS: BACTERIA, URINE OCC /hpf; BILIRUBIN, URINE NEG (NEG); BLOOD, URINE NEG (NEG); GLUCOSE,URINE NEG (NEG); KETONE, URINE NEG (NEG); MUCUS URINE FEW /lpf (OCC); NITRITE,URINE NEG (NEG); SQUAMOUS EPITHELIAL CELL URINE 7 /hpf (0-5); URINE COLOR Amber (YELLW/STRAW); URINE LEUKOCYTE ESTERASE LARGE (NEG)
[2017-12-19] MEDS ORDERED: LIDOCAINE HCL 1% PF 30 ML VIAL ONE (19:02)
[2017-12-19] MEDS ORDERED: METR-1 PO (19:03)
[2017-12-19] MEDS ORDERED: BACT800T5 PO (19:15)
[2017-12-19] MEDS ORDERED: METR0.7528 VAGINAL (19:15)
== END 2017-12-19 19:51 | disposition home or self-care (01) ==
LOC: NEPD 15:29
DX: N76.0 Acute vaginitis (principal); N39.0 Urinary tract infection, site not specified; M19.90 Unspecified osteoarthritis, unspecified site; F41.9 Anxiety disorder, unspecified; F32.9 Major depressive disorder, single episode, unspecified; E78.00 Pure hypercholesterolemia, unspecified; J44.9 Chronic obstructive pulmonary disease, unspecified; M79.7 Fibromyalgia; K21.9 Gastro-esophageal reflux disease without esophagitis; F17.200 Nicotine dependence, unspecified, uncomplicated; Z87.19 Personal history of other diseases of the digestive system; Z79.899 Other long term (current) drug therapy; Z88.1 Allergy status to other antibiotic agents; Z88.8 Allergy status to other drugs, medicaments and biological substances
CPT/HCPCS: 81001; 86403; 87086; 87210; 87491; 87591; 96372; 99283; J0696